=== PATIENT | male | born 2005 | race Caucasian/White ===

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

== ENCOUNTER 2024-05-02 08:36 | Day surgery (SDC) | payer OTHER, SELFPAY ==
[2024-05-02] MEDS ORDERED: Bupivacaine 0.25% 10 ML VIAL ONE ×2 (09:40→10:05)
[2024-05-02] MEDS ORDERED: Bacitracin 1 PK ONE (10:37)
[2024-05-02] MEDS ORDERED: CEFAZOLIN 2 GM VIAL ONE (10:43)
[2024-05-02] MEDS ORDERED: Sodium Chloride 0.9% 100 ML ONE (10:44)
[2024-05-02 11:01] LABS: #Basophils 0.03 10x3/uL (0.0-0.2); %Basophils 0.3 % (0.0-1.0); %Eosinophils 0.5 % (0.0-10.0); %Lymphocytes 12.2 % (28.0-48.0); %Monocytes 6.6 % (0.0-4.0); %Neutrophils 80.3 % (31.0-61.0); Hematocrit 51.1 % (42.0-52.0); Hemoglobin 16.9 g/dL (14.0-18.0); Mean Corpuscular HGB CONC 33.1 g/dL (32.0-36.0); Mean Corpuscular Hemoglobin 27.8 pg (25.0-35.0); Mean Corpuscular Volume 84.2 fL (78.0-98.0); Mean Platelet Volume 10.2 fL (7.4-10.4); Platelet Count 222 10x3/uL (130-400); RBC Distribution Width 13.4 % (11.5-14.5); Red Blood Cell (RBC) Count 6.07 mill/uL (4.00-5.20)
[2024-05-02 11:55] LABS: ALT (SGPT) 24 U/L (8-55); AST (SGOT) 24 U/L (10-45); Albumin 4.7 g/dL (3.5-5.0); Alkaline Phosphatase 81 U/L (50-130); Anion Gap 16 mmol/L (10-20); BUN (Urea Nitrogen) 14 mg/dL (8.4-21.0); Bilirubin, Total 0.8 mg/dL (0.2-1.2); Calc. Creatinine Clearance 0 mL/min (70-130); Calcium 10.2 mg/dL (7.8-10.44); Carbon Dioxide 22 mmol/L (22-29); Chloride 103 mmol/L (98-107); Estimated GFR 127; Globulin 3.9 g/dL (2.4-3.5); Glucose 91 mg/dL (70-105); Potassium 4.2 mmol/L (3.5-5.1); Protein, Total 8.6 g/dL (6.0-8.3); Sodium 137 mmol/L (136-145)
[2024-05-02] MEDS ORDERED: Fentanyl 250 MCG/5 ML VIAL ONE (14:34)
[2024-05-02] MEDS ORDERED: Dexmedetomidine 200 MCG/2 ML VIAL ONE ×2 (14:34→14:41)
[2024-05-02] MEDS ORDERED: Midazolam HCl 2 mg/2 ml Vial ONE (14:34)
[2024-05-02] MEDS ORDERED: PROPOFOL 40 ML ONE (14:35)
[2024-05-02] MEDS ORDERED: fentaNYL PF 100 MCG/2 ML SYRINGE ONE (14:35)
[2024-05-02] MEDS ORDERED: Ketorolac Tromethamine 30 MG (1 mL) VIAL ONE (14:45)
[2024-05-02] MEDS ORDERED: Lidocaine 1% PF 5 ML VIAL ONE (14:45)
[2024-05-02] MEDS ORDERED: Dexamethasone 20 MG/5 ML VIAL ONE (14:45)
[2024-05-02] MEDS ORDERED: Glycopyrrolate 0.2 MG/ML 5 ML SYRINGE ONE (14:51)
[2024-05-02] MEDS ORDERED: ePHEDrine Sulfate 50 MG/10 ML VIAL ONE (14:56)
[2024-05-02] MEDS ORDERED: Mineral Oil Sterile 10 ML VIAL ONE (14:57)
[2024-05-02] MEDS ORDERED: Bupivacaine PF 0.5% 30 ML VIAL ONE (14:58)
[2024-05-02] MEDS ORDERED: CEFAZOLIN 1 GM VIAL ONE (15:03)
[2024-05-02] MEDS ORDERED: Ondansetron PF 4 MG/2 ML Vial ONE (15:07)
[2024-05-02] MEDS ORDERED: Bacitracin Zinc Ointment 30 gm TUBE ONE (15:17)
[2024-05-02] MEDS ORDERED: PHENYLEPHRINE-NS 100 MCG/ML 10 ML SYRINGE ONE (15:30)
== END 2024-05-02 17:32 | disposition home or self-care (01) ==
LOC: ERS 08:36 → SDC 12:56
PROVIDERS: ATTEND Emergency Medicine
PROC: 0PBV0ZZ Excision of Left Finger Phalanx, Open Approach (ICD-10-PCS; principal; 2024-05-02)
PROC: 0HRGX74 Replacement of Left Hand Skin with Autologous Tissue Substitute, Partial Thickness, External Approach (ICD-10-PCS; principal; 2024-05-02)
PROC: 0HBFXZZ Excision of Right Hand Skin, External Approach (ICD-10-PCS; principal; 2024-05-02)
DX: S68.625A Partial traumatic transphalangeal amputation of left ring finger, initial encounter (principal); X58.XXXA Exposure to other specified factors, initial encounter
CPT/HCPCS: 64450; 80053; 85025; 96365; A6258; J0665; J0690; J1100; J1885; J2250; J2405; J2704; J3010